=== PATIENT | male | born 1930 | race Caucasian/White ===

== ENCOUNTER 2017-04-16 07:31 | Emergency (ER) | payer MEDICARE, OTHER ==
[~2017-04-16] VITALS: Ht 165.1 cm; Wt 72.6 kg
[~2017-04-16 07:31] MED LIST: ACCUNEB SO1.25 MG/1 INH; ACIPHEX 20 MG T20 MG PO; ASA5UEC PO; ASPIR 8181 MG PO; ASPIRIN325 PO; BACITRACIN15 GM TP; BUDESONIDE0.5 MG/2 M INH; BUSPIRONE HCL10 MG PO; CARDURA2 MG PO; CEFPODOXIME PR200 M1 PO; COLACE100 MG PO; COZAAR 25 MG TA25 M1 PO; DOXYCYCLINE HY100 MG PO; DUONEB 2.5-0.5 M3 ML INH; ELIQUIS2.5 MG PO; ELIQUIS5 MG PO; EXELON1 EAC1 TRANSDERM; FINASTERIDE5 MG; FINASTERIDE5 MG PO; ICAPS TABLET1 EACH PO; IPRAT-ALBUT 0.5-3 ML IH; LEVAQUIN 500 M500 M1 PO; LEVAQUIN 500 M500 M2 PO; LIPITOR10 MG PO; LISINOPRIL10 MG; MEDROLDOSEPACK PO; METFORMIN HCL500 MG PO; MIRALAX17 GM PO; MOBIC7.5 MG PO; MUCINEX TA600 MG/TA2 PO; NEBULIZER MISCELL; NICOTINE TRANSD21 M1 TRANSDERM; POLYSPORIN OINT15 GM TP; PREDNISONE 10 M10 MG PO; PREDNISONE 20 M20 MG PO; PROTONIX40 M1 PO; SINGULAIR 10 MG10 M1 PO; SORINE 80 MG TA80 M1 PO; SYMBICORT160 MCG/4. INH; TAMSULOSIN HCL0.4 MG PO; TESSALON PERLE100 MG PO; TOPROL XL25 MG PO; VENTOLIN HFA 1818 GM INH; VITAMIN D3400 UNIT PO; XANAX 0.25 MG0.25 MG PO; XARELTO20 MG PO; ZPAK PO
[2017-04-16] MEDS ORDERED: ADVAIR 250-501 EACH INH (07:40)
[2017-04-16] MEDS ORDERED: ELIQUIS5 MG PO (07:41)
[2017-04-16] MEDS ORDERED: ICAPS TABLET1 EACH PO (07:41)
[2017-04-16] MEDS ORDERED: PREDNISONE 10 M10 MG PO (07:42)
[2017-04-16] MEDS ORDERED: ARTIFICIAL TEAR15 M1 OPHTHALMIC (07:43)
[2017-04-16] MEDS ORDERED: MAPAP325 MG PO (07:44)
[2017-04-16] MEDS ORDERED: PROAIR HFA8.5 GM INH (07:44)
[2017-04-16 09:37] VITALS: BP 123/87
== END 2017-04-16 09:39 | disposition home or self-care (01) ==
LOC: M.ERS 07:31
DX: S70.02XA Contusion of left hip, initial encounter (principal); E78.00 Pure hypercholesterolemia, unspecified; I10 Essential (primary) hypertension; J44.9 Chronic obstructive pulmonary disease, unspecified; F03.90 Unspecified dementia, unspecified severity, without behavioral disturbance, psychotic disturbance, mood disturbance, and anxiety; Z88.0 Allergy status to penicillin; Z88.5 Allergy status to narcotic agent; W18.39XA Other fall on same level, initial encounter; Y93.89 Activity, other specified; Y92.89 Other specified places as the place of occurrence of the external cause; Y99.8 Other external cause status

== ENCOUNTER 2017-08-31 13:00 | Inpatient (IN) | payer MEDICARE, OTHER ==
[~2017-08-31] VITALS: Ht 165.1 cm; Wt 80.3 kg
[~2017-08-31 13:00] MED LIST changes: +ADVAIR 250-501 EACH INH; +ARTIFICIAL TEAR15 M1 OPHTHALMIC; +MAPAP325 MG PO; +PROAIR HFA8.5 GM INH
[2017-08-31] MEDS ORDERED: FLUVOXAMINE MAL25 MG PO (13:10)
[2017-08-31] MEDS ORDERED: PROBIOTIC1 EAC1 PO (13:11)
[2017-08-31] MEDS ORDERED: KLOR-CON 1010 MEQ PO (13:11)
[2017-08-31] MEDS ORDERED: LASIX 20 MG TAB20 MG PO (13:11)
[2017-08-31] MEDS ORDERED: ATIVAN0.5 MG PO (13:11)
[2017-08-31 13:19] LABS: ABSOLUTE BASOPHILS 0.1 thou/uL (0.0-0.2); ABSOLUTE EOSINOPHILS 0.2 thou/uL (0.0-0.7); ABSOLUTE LYMPHOCYTES 2.4 thou/uL (0.8-5.3); ABSOLUTE MONOCYTES 1.2 thou/uL (0.0-1.2); ABSOLUTE NEUTROPHILS 6.1 thou/uL (1.6-8.1); BASOPHILS 0.6 %; EOSINOPHILS 1.8 %; HEMATOCRIT 34.4 % (42.0-52.0); HEMOGLOBIN 11.4 gm/dL (14.0-18.0); LYMPHOCYTES 24.2 %; MCH 30.3 pg (26.0-34.0); MCHC 33.2 g/dL (28.0-37.0); MCV 91.2 fL (80.0-100.0); MONOCYTES 11.9 %; MPV 6.6 fl. (7.2-11.1); NUCLEATED RBCS 0 /100WBC; PLATELET COUNT* 244 thou/uL (150-400); POLYS 61.5 %; RBC 3.78 mil/uL (4.50-6.00); RDW-CV 16.2 % (10.5-14.5); WBC 9.9 thou/uL (4.0-11.0)
[2017-08-31 13:29] LABS: ANION GAP 1 mmol/L (7-16); BUN 25 mg/dL (7-18); CALCIUM 9.1 mg/dL (8.5-10.1); CHLORIDE 102 mmol/L (98-107); CO2 33 mmol/L (21-32); CREATININE 1.2 mg/dL (0.6-1.3); GLUCOSE 125 mg/dL (70-99); INR 1.2; POTASSIUM 5.1 mmol/L (3.5-5.1); PROTIME 11.3 Seconds (9.20-11.50); SODIUM 136 mmol/L (136-145)
[2017-08-31 13:48] LABS: ALBUMIN 3.2 g/dL (3.4-5.0); ALKALINE PHOSPHATASE 56 U/L (46-116); CK-MB MASS 2.6 ng/mL (<0.5-3.6); NT-PRO BRAIN NAT PEPTIDE 1183 pg/mL (<300); SGOT 19 U/L (15-37); SGPT 18 U/L (30-65); TOTAL BILIRUBIN 0.4 mg/dL (<0.1-1.0); TROPONIN-I LEVEL <0.06 ng/mL (<0.06)
[2017-08-31 16:11] VITALS: BP 115/61
[2017-08-31 17:08] VITALS: BP 143/74
--- NOTE | 2017-08-31 17:42 | NUR ---
PATIENT ADMITTED TO ROOM 209 FROM ER. ALERT AND ORIENTED X 4 BUT PATIENT NOTED TO BE HALLUCINATING. PATIENT ATTEMPTING TO OPEN CABINET DOORS THAT ARE NOT THERE. UA SAMPLE SENT ORDERED. [address], 02 SAT 99%. 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 FALL RISK PROTOCOL. ORIENTED TO CALL LIGHT, CALL LIGHT WITHIN REACH. WILL CONTINUE TO MONITOR.
[2017-08-31] MEDS ORDERED: MIRALAX17 GM PO (17:57)
[2017-08-31 18:07] LABS: URINE BILIRUBIN NEGATIVE (Negative); URINE BLOOD NEGATIVE (Negative); URINE CLARITY CLEAR; URINE COLOR YELLOW; URINE GLUCOSE-RANDOM NEGATIVE (Negative); URINE KETONES NEGATIVE (Negative); URINE LEUKOCYTES-REFLEX NEGATIVE (Negative); URINE NITRITE-REFLEX NEGATIVE (Negative); URINE PROTEIN NEGATIVE (Negative); URINE UROBILINOGEN 0.2 E.U./dl (0.2-1.0)
[2017-08-31 20:00] VITALS: BP 132/75
[2017-09-01] VITALS (7 sets, daily range): BP systolic 113–158; BP diastolic 49–85
--- NOTE | 2017-09-01 05:25 | NUR ---
this nuyrse assumes care of pt 08/31/17 a 1930 pt is alert and oriented to person and place, pt has confusion and delusions, pt has constant twitching movements, denies pain, takes all meds po without difficulty, remains on residential monitor tracing sinus rhythm, pt on room air, sats high 90s, pt reports being SOA with exertion, pt up with assist for brp, pt is incontinent at times, remains on IV fluids, pt moved from room 209 to 213 for safety, lying in bed at this time, bed alarm on, call light within reach, siderails up x4
--- NOTE | 2017-09-01 05:31 | NUR ---
pt currently has supplemental o2 via nc at 2L
[2017-09-01 11:51] LABS: BE 1.7 mmol/L (-2 to +3); PO2 107.8 mmHg (75.0-100.0); pH 7.314 (7.340-7.450)
[2017-09-01 13:08] LABS: PCO2 58.3 mmHg (35.0-45.0)
--- NOTE | 2017-09-01 18:00 | NUR ---
PATIENT SLEEPING ALL MORNING/AFTERNOON AND IGNORING MOST COMMANDS. NEURO CONS AND SAW PATIENT, CT LUMBAR ORDERS AND VIT B SHOTS X 3 WITH FIRST DOSE GIVEN THIS EVENING. PATIENT UP TO CHAIR THIS AM BUT CONTINUED TO SLEEP. IV SL THIS SHIFT. PATIENT REFUSING TO WAKE FOR BREAKFAST AND LUNCH, PATIENT AWAKE AND EATING DINNER THIS EVENING. VOIDING PER URINAL. [address], DR. PLUMMER WAS NOTIFIED THIS AFTERNOON OF CRITICAL C02 ON ABG.
[2017-09-02 04:00] VITALS: BP 129/65
[2017-09-02 04:50] LABS: ABSOLUTE EOSINOPHILS 0.2 thou/uL (0.0-0.7); ABSOLUTE LYMPHOCYTES 2.3 thou/uL (0.8-5.3); ABSOLUTE MONOCYTES 1.2 thou/uL (0.0-1.2); ABSOLUTE NEUTROPHILS 6.1 thou/uL (1.6-8.1); BASOPHILS 0.3 %; EOSINOPHILS 2.3 %; HEMATOCRIT 35.2 % (42.0-52.0); HEMOGLOBIN 11.7 gm/dL (14.0-18.0); LYMPHOCYTES 23.5 %; MCH 30.9 pg (26.0-34.0); MCHC 33.3 g/dL (28.0-37.0); MCV 92.9 fL (80.0-100.0); MONOCYTES 12.2 %; MPV 6.7 fl. (7.2-11.1); NUCLEATED RBCS 0 /100WBC; PLATELET COUNT* 209 thou/uL (150-400); POLYS 61.7 %; RBC 3.78 mil/uL (4.50-6.00); WBC 9.9 thou/uL (4.0-11.0)
--- NOTE | 2017-09-02 05:04 | NUR ---
ASSUMED CARE OF PATIENT AT 1900 THE PATIENT REMAINS IN AN ACCELEATED JUNCTIONAL RHYTHM ON THE MONITOR O2 SAT MAINTAINED ON 1 L NC CONTINUES TO BE UP WITH ASSIST OF 1 TO THE RECLINER ROUTINE REGIMEN CONTINUES TO BE EFFECTIVE FOR SX MANAGEMENT SAFETY PATIENT PROGRESING TOWARDS GOALS INTERVENTIONS CONTINUE BED LOWERED WHEELS LOCKED CALL LIGHT IN REACH SIDE RAILS UP REPORT TO BE GIVEN TO ЕКАТЕРИНА BURTON
[2017-09-02 05:19] LABS: CALCIUM 8.9 mg/dL (8.5-10.1); POTASSIUM 4.5 mmol/L (3.5-5.1)
[2017-09-02 08:15] VITALS: BP 124/64
--- NOTE | 2017-09-02 11:34 | EKG ---
[place] [address] ELECTROCARDIOGRAM REPORT Name: TAZTONY Senthil Room: [address] IN [facility]#: [id number] Admission: 08/31/17 Attend Phys: Timothy Ponce Discharge: Date of : [birth year] Report #: [id number] THIS REPORT FOR: //name// [facility] ED Test Date: 2017-08-31 Test Time: 13:05:04 Pat Name: TONY MCGHEE Department: Room: Gender: [employer]: Esther LAGOS : 1930 Requested By: Remi Acosta Order Number: [id number] MD: Waqar Jarvis Measurements Intervals [place] Rate: 75 P: IA: QRS: 47 QRSD: 91 T: 28 QT: 414 QTc: 463 Interpretive Statements sinus rhythm Borderline repolarization abnormality Compared to ECG 08/29/2016 06:14:25 artifact no longer noted Electronically Signed On 09-02-2017 11:34:30 CDT by Waqar Jarvis [email or web address] <ELECTRONICALLY SIGNED> By: Waqar Jarvis MD, [facility] 09/02/17 1134 1305 1305 Waqar Jarvis MD, [facility] /EPI
[2017-09-02 13:08] VITALS: BP 150/76
--- NOTE | 2017-09-02 13:56 | 2DMMODE ---
[place] [address] 2 D/M-MODE ECHOCARDIOGRAM Name: TONY MCGHEE Room: [address] IN .R.#: [id number] Admission: 08/31/17 Attend Phys: Antoine Mckeon Discharge: Date of : [birth year] Date of Service: 09/02/17 1356 Report #: [id number] THIS REPORT FOR: //name// APPROVED REPORT Study performed: 09/02/2017 10:40:24 EXAM: Comprehensive 2D, Doppler, and color-flow Echocardiogram Patient Location: Bedside BSA: 1.88 HR: 70 bpm BP: 124/64 mmHg Other Information Study Quality: Fair Technically limited study due to inability to position patient. Indications AMS 2D Dimensions LVEF(%): 62.17 (>50%) IVSd: 12.50 (7-11mm) LVOT Diam: 20.07 (18-24mm) LVDd: 37.92 mm PWd: 11.90 (7-11mm) Ascending Ao: 33.80 (22-36mm) LVDs: 25.44 (25-40mm) Aortic Root: 30.58 mm Reyes's LVEF: 62.17 % Volumes Left Atrial Volume (Systole) LA ESV Index: 19.60 mL/m2 Aortic Valve AoV Peak Jose.: 1.38 m/s AO Peak Gr.: 7.58 mmHg LVOT Max P.94 mmHg AO Mean Gr.: 4.19 mmHg LVOT Mean P.39 mmHg LVOT Max V: 0.86 m/s AO V2 VTI: 26.97 cm LVOT Mean V: 0.54 m/s DEVAN (VTI): 2.38 cm2 LVOT V1 VTI: 20.32 cm Mitral Valve E/A Ratio: 0.71 [place] [address] 2 D/M-MODE ECHOCARDIOGRAM Name: TONY MCGHEE Room: [address] IN .R.#: [id number] Admission: 08/31/17 Attend Phys: Antoine Mckeon Discharge: Date of : [birth year] Date of Service: 09/02/17 1356 Report #: [id number] MV Decel. Time: 337.73 ms MV E Max Jose.: 0.72 m/s MV PHT: 97.94 ms MVA (PHT): 2.25 cm2 TDI E/Lateral E': 10.29 E/Medial E': 10.29 Medial E' Jose.: 0.07 m/s Lateral E' Jose.: 0.07 m/s Pulmonary Valve PV Peak Jose.: 0.80 m/s PV Peak Gr.: 2.55 mmHg Tricuspid Valve RAP Estimate: 10.00 mmHg TR Peak Gr.: 54.26 mmHg RVSP: 64.26 mmHg PA Pressure: 64.26 mmHg Left Ventricle The left ventricle is normal size. There is normal LV segmental wall motion. Mild concentric left ventricular hypertrophy. Left ventricular systolic function is normal. The left ventricular ejection fraction is within the normal range. LVEF is 60-65%. Grade I - abnormal relaxation pattern. Right Ventricle The right ventricle is normal size. The right ventricular systolic function is normal. Atria The left atrium size is normal. The right atrium size is normal. Aortic Valve The Aortic valve is sclerotic. No aortic regurgitation is present. There is no aortic valvular stenosis. Mitral Valve There is mitral annular calcification. Trace mitral regurgitation. No evidence of mitral valve stenosis. Tricuspid Valve The tricuspid valve is normal in structure. Trace tricuspid regurgitation. estimated pa pressure 60 [place] [address] 2 D/M-MODE ECHOCARDIOGRAM Name: TONY MCGHEE Room: [address]#: [id number] Admission: 08/31/17 Attend Phys: Antoine Mckeon Discharge: Date of : [birth year] Date of Service: 09/02/17 1356 Report #: [id number] Pulmonic valve is not well visualized. There is no pulmonic valvular regurgitation. Great Vessels The aortic root is normal in size. IVC is dilated. Pericardium There is no pericardial effusion. <Conclusion> Mild concentric left ventricular hypertrophy. LVEF is 60-65%. The Aortic valve is sclerotic. Trace tricuspid regurgitation. estimated pa pressure 60 mm hg <ELECTRONICALLY SIGNED> By: Waqar Jarvis MD, FACC 09/02/17 1356 1356 1356 Waqar Jarvis MD, FACC /INF
--- NOTE | 2017-09-02 15:49 | NUR ---
Pt is A&O. Resides at [facility]. Pt states that he goes to meals at the facility and staff dispense his medications. Staff also clean. Pt has a walker that he uses for mobility. Pt wears home o2 cont at 3L, provided through [facility]. No hx of HH or SNF. PT/OT orders placed. Pt's goal is to return home at dc. Discussed possible need for skilled at dc, pending therapy evals. CM following.
--- NOTE | 2017-09-02 15:55 | NUR ---
ASSUMED PT CARE AT 0730, FULL ASSESMENT DONE CHARTED. PT SLIGHLY DROWSY BUT AWAKE AND ATE BREAKFAST AND LUNCH. PT ORIENTED X3, FORGETFUL. USES CALL LIGHT APPROPRIATLY. VSS, ACCELERATED JUNCTIONAL ON THE MONITOR. PT EXPRESSES WANT TO GO HOME. HE DID SPEAK TO NEUROLOGIST TODAY. PT HAS SAT IN CHAIR AND BACK TO BED SEVERAL TIMES TODAY. FALL PRECAUTIONS IN PLACE. WILL CONTINUE WITH PLAN OF CARE.
[2017-09-02 16:03] VITALS: BP 136/69
--- NOTE | 2017-09-02 18:47 | NUR ---
PT PROGRESSING TOWARD GOALS. HE HAS BEEN MORE ALERT THROUGH THE SHIFT, HE DOES NAP AT TIMES, BUT IS ALERT ENOUGHT TO HAVE CONVERSATIONS AND EAT MEALS. PT IS REQUESTING A NICOTINE PATCH HE CHEWS. PT UP WITH RN AND WALKER IN HURT THIS EVENING. FALL PRECAUTIONS IN PLACE, FAMILY AT BEDSIDE. WILL CONTINUE TO MONITOR.
[2017-09-02 19:58] VITALS: BP 153/78
[2017-09-03] VITALS: BP 159/85
--- NOTE | 2017-09-03 03:58 | NUR ---
Pt requested to be assisted to chair, then back to bed, approx every 45-60 minutes throughout shift. States unable to get or stay comfortable. Voiding per urinal. VSS. Remains on 1L O2 per NC. SR per monitor. Will continue to monitor.
[2017-09-03 04:00] VITALS: BP 164/84
[2017-09-03 05:04] LABS: ABSOLUTE EOSINOPHILS 0.2 thou/uL (0.0-0.7); ABSOLUTE LYMPHOCYTES 2.4 thou/uL (0.8-5.3); ABSOLUTE MONOCYTES 1.3 thou/uL (0.0-1.2); BASOPHILS 0.2 %; EOSINOPHILS 1.7 %; HEMATOCRIT 37.3 % (42.0-52.0); HEMOGLOBIN 12.6 gm/dL (14.0-18.0); LYMPHOCYTES 24.2 %; MCH 31.4 pg (26.0-34.0); MCHC 33.9 g/dL (28.0-37.0); MCV 92.6 fL (80.0-100.0); MPV 7.1 fl. (7.2-11.1); NUCLEATED RBCS 0 /100WBC; PLATELET COUNT* 204 thou/uL (150-400); POLYS 60.9 %; RBC 4.02 mil/uL (4.50-6.00); RDW-CV 15.8 % (10.5-14.5); WBC 9.8 thou/uL (4.0-11.0)
[2017-09-03 05:20] LABS: CREATININE 1.1 mg/dL (0.6-1.3); POTASSIUM 4.2 mmol/L (3.5-5.1)
[2017-09-03 08:00] VITALS: BP 156/74
--- NOTE | 2017-09-03 09:38 | NUR ---
ASSUMED PT CARE AT 0730, FULL ASSESMENT DONE CHARTED. PT A/O X4, UP IN CHAIR, ATE BREAKFAST. STATES HE DID NOT SLEEP WELL LAST NIGHT. PT WANTS TO KNOW WHEN HE IS GOING HOME. EGD SCHEDULED FOR TODAY. PTS VSS, DENIES PAIN, SR ON THE MONITOR. FALL PRECAUTIONS IN PLACE. PT USING CALL LIGHT APPROPRIALTY. WILL CONTINUE WITH PLAN OF CARE.
[2017-09-03 12:00] VITALS: BP 123/62
[2017-09-03 20:00] VITALS: BP 158/76
[2017-09-04] VITALS: BP 133/73
[2017-09-04 03:53] VITALS: BP 156/79
--- NOTE | 2017-09-04 05:36 | NUR ---
ASSUMED PT CARE AT 1930. NURSING ASSESSMENT COMPLETED AT START OF SHIFT. PT VOICED NO CONCERNS THIS SHIFT. TRACING SINUS RHYTHM, HIGH FALL PRECAUTIONS IN PLACE. CALL LIGHT WIHIN REACH.
[2017-09-04 08:00] VITALS: BP 133/74
[2017-09-04 12:00] VITALS: BP 108/59
[2017-09-04] MEDS ORDERED: NICOTINE TRANSD21 M1 TOP (13:18)
[2017-09-04 13:30] VITALS: BP 108/59
--- NOTE | 2017-09-04 13:31 | NUR ---
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 Faxed dc orders. Chart copied. Updated Pt's dtr.
--- NOTE | 2017-09-04 15:40 | NUR ---
PT GIVEN DISCHARGE INSTRUCTIONS AND VERBALIZES UNDERSTANDING. EDUCATED ON SMOKING CESSATION. PT TRANSFERRED TO [facility] WITH [facility] VEHICLE AND UNRELATED ADULT. DC'D PER W/C WITH RN. NO OTHER CONCERNS AT THIS TIME.
--- NOTE | 2017-09-13 12:17 | EEG ---
[address] [address] EEG STUDY REPORT Name: TAZTONY E Room: [address] IN M.R.#: [id number] Admission: 08/31/17 Attend Phys: Timothy Ponce Discharge: 09/04/17 Date of : [birth year] Report #: [id number] THIS REPORT FOR: //name// CC: [facility] physician/PCP Antoine Mckeon DATE OF SERVICE: 09/03/2017 This patient is being evaluated for altered mental status. EEG is being done to further evaluate that. EEG was done by placing the electrode by standard 10-20 system of electrode placement. Both referential and sequential montages were used for recording. Background activity in this patient's EEG is about 8 Hz and 30 microvolt. It is a symmetrical activity. The patient became drowsy that is associated with bilateral slowing and vertex sharp waves. Photic stimulation is unremarkable. Throughout the record, no active epileptiform activity was noticed. IMPRESSION: This patient's EEG is intermixed with moderate amount of theta range slowing on both sides. That is a nonspecific abnormality, which can occur with encephalopathy, effect of psychotropic medication, dementia, etc. Clinical correlation is recommended. <ELECTRONICALLY SIGNED> By: Esdras Anthony MD 09/13/17 1217 1247 [id number] Anthony MD /nt
== END 2017-09-04 15:37 | DRG 640 ==
LOC: M.ERS 13:00 → M.TBA-ER 14:35 → M.2W 14:35
PROVIDERS: Family Medicine; ADMIT Internal Medicine
DX: E86.0 Dehydration (principal); G93.40 Encephalopathy, unspecified; J96.10 Chronic respiratory failure, unspecified whether with hypoxia or hypercapnia; F41.9 Anxiety disorder, unspecified; I25.2 Old myocardial infarction; I12.9 Hypertensive chronic kidney disease with stage 1 through stage 4 chronic kidney disease, or unspecified chronic kidney disease; N18.3 Chronic kidney disease, stage 3 (moderate); E78.00 Pure hypercholesterolemia, unspecified; F17.210 Nicotine dependence, cigarettes, uncomplicated; E78.5 Hyperlipidemia, unspecified; K21.9 Gastro-esophageal reflux disease without esophagitis; N40.0 Benign prostatic hyperplasia without lower urinary tract symptoms; J44.9 Chronic obstructive pulmonary disease, unspecified; F03.90 Unspecified dementia, unspecified severity, without behavioral disturbance, psychotic disturbance, mood disturbance, and anxiety; W19.XXXS Unspecified fall, sequela; Z88.6 Allergy status to analgesic agent; Z88.0 Allergy status to penicillin; Z91.81 History of falling; Z99.81 Dependence on supplemental oxygen; Z79.899 Other long term (current) drug therapy; Z82.49 Family history of ischemic heart disease and other diseases of the circulatory system; Y93.89 Activity, other specified; Y92.89 Other specified places as the place of occurrence of the external cause; Y99.8 Other external cause status

== ENCOUNTER 2017-10-05 21:04 | Emergency (ER) | payer MEDICARE, OTHER ==
[~2017-10-05] VITALS: Ht 165.1 cm; Wt 79.4 kg
[~2017-10-05 21:04] MED LIST changes: +ATIVAN0.5 MG PO; +FLUVOXAMINE MAL25 MG PO; +KLOR-CON 1010 MEQ PO; +LASIX 20 MG TAB20 MG PO; +NICOTINE TRANSD21 M1 TOP; +PROBIOTIC1 EAC1 PO
[2017-10-05] MEDS ORDERED: POTASSIUM20 PO (21:14)
[2017-10-05 23:00] VITALS: BP 144/79
== END 2017-10-05 23:00 | disposition home or self-care (01) ==
LOC: M.ERS 21:04
DX: S81.011A Laceration without foreign body, right knee, initial encounter (principal); S09.8XXA Other specified injuries of head, initial encounter; L89.322 Pressure ulcer of left buttock, stage 2; E78.00 Pure hypercholesterolemia, unspecified; I10 Essential (primary) hypertension; J44.9 Chronic obstructive pulmonary disease, unspecified; F03.90 Unspecified dementia, unspecified severity, without behavioral disturbance, psychotic disturbance, mood disturbance, and anxiety; Z88.0 Allergy status to penicillin; Z88.5 Allergy status to narcotic agent; W18.39XA Other fall on same level, initial encounter; Y93.89 Activity, other specified; Y92.89 Other specified places as the place of occurrence of the external cause; Y99.8 Other external cause status

== ENCOUNTER 2017-11-06 18:13 | Inpatient (IN) | payer MEDICARE, OTHER ==
[~2017-11-06] VITALS: Ht 165.1 cm; Wt 71.7 kg
[~2017-11-06 18:13] MED LIST changes: +POTASSIUM20 PO
[2017-11-06 18:21] VITALS: BP 118/70
[2017-11-06] MEDS ORDERED: ADVAIR 250-501 EACH INH (18:37)
--- NOTE | 2017-11-06 18:40 | NUR ---
WENT TO DO EKG AND START IV. PATIENT LEAVING FOR CT
[2017-11-06] MEDS ORDERED: RISAMINE OINTM113 GM TOP (18:42)
[2017-11-06] MEDS ORDERED: TRIPLE ANTIB28.35 GM TOP (18:44)
[2017-11-06 18:55] LABS: ABSOLUTE BASOPHILS 0.1 thou/uL (0.0-0.2); ABSOLUTE LYMPHOCYTES 2.2 thou/uL (0.8-5.3); ABSOLUTE MONOCYTES 0.4 thou/uL (0.0-1.2); ABSOLUTE NEUTROPHILS 5.6 thou/uL (1.6-8.1); BASOPHILS 0.8 %; HEMOGLOBIN 13.1 gm/dL (14.0-18.0); LYMPHOCYTES 26.3 %; MCH 31.6 pg (26.0-34.0); MCHC 32.8 g/dL (28.0-37.0); MCV 96.5 fL (80.0-100.0); MPV 7.6 fl. (7.2-11.1); NUCLEATED RBCS 0 /100WBC; PLATELET COUNT* 269 thou/uL (150-400); POLYS 67.9 %; RBC 4.14 mil/uL (4.50-6.00); RDW-CV 15.1 % (10.5-14.5); WBC 8.2 thou/uL (4.0-11.0)
[2017-11-06 19:04] LABS: ANION GAP 18 mmol/L (7-16); BUN 62 mg/dL (7-18); CALCIUM 8.7 mg/dL (8.5-10.1); CHLORIDE 99 mmol/L (98-107); CO2 19 mmol/L (21-32); CREATININE 6.2 mg/dL (0.6-1.3); GLUCOSE 123 mg/dL (70-99); SODIUM 136 mmol/L (136-145)
--- NOTE | 2017-11-06 19:13 | NUR ---
RECEIVED REPORT FROM MICHEAL CHA PT CURRENTLY AT RADIOLOGY
[2017-11-06 19:14] LABS: ALBUMIN 3.3 g/dL (3.4-5.0); ALKALINE PHOSPHATASE 74 U/L (46-116); LIPASE 201 U/L (73-393); NT-PRO BRAIN NAT PEPTIDE 6218 pg/mL (<300); SGOT 14 U/L (15-37); SGPT 12 U/L (30-65); TOTAL BILIRUBIN 0.6 mg/dL (<0.1-1.0); TOTAL PROTEIN 6.5 g/dL (6.4-8.2); TROPONIN-I LEVEL <0.06 ng/mL (<0.06)
[2017-11-06 21:40] VITALS: BP 122/61
--- NOTE | 2017-11-06 22:00 | NUR ---
PATIENT ARRIVED TO UNIT @ 2139. VS WNL. AFIB ON MONITOR. PT ORIENT X4. HE DID HAVE AN EPISODE OF VOMITTING. SAYS HE IS STILL NAUSEOUS. PAGED NEPHRO FOR ORDERS. SPOKE TO TAMMY MAGALLANES (DTR) UPDATED ON CURRENT CARE. SHE VOICED UNDERSTANDING. SHE ASKED TO SPEAK TO THE LEATHER REPAIRER. WILL PASS ON REPORT. PT IS DENYING PAIN AT THE MOMENT. STATED THAT HIS SHOULDER PAIN WENT AWAY AFTER THEY GAVE HIM MEDICATION IN ER. WILL CONTINUE TO MONITOR CLOSELY.
[2017-11-06 22:04] VITALS: BP 134/84
[2017-11-06 23:00] VITALS: BP 140/61
[2017-11-07] VITALS (9 sets, daily range): BP systolic 94–155; BP diastolic 43–66
--- NOTE | 2017-11-07 06:17 | NUR ---
PATIENT PROGRESSING TOWARDS GOALS. POTASSIUM LEVELS TRENDING DOWN. NEPHROLOGY AWARE AND ORDERS GIVEN. HEMODYNAMICALLY STABLE. VS WNL. PT MARJAN SR ON MONITOR ASYMPTOMATIC. URINE OUTPUT NOT ADEQUATE. HAD SEVERAL LIQUID STOOLS OVER NIGHT. PT WILL HAVE ANOTHER POTASSIUM BLOOD THIS A.M. DENIES N &V. BED TO LOWEST POSITION. CALL LIGHT WITHIN REACH. RECIEVED Q2H TURNS THROUGHOUT SHIFT.
[2017-11-07 08:27] LABS: CALCIUM 8.4 mg/dL (8.5-10.1); CREATININE 6.1 mg/dL (0.6-1.3); POTASSIUM 4.8 mmol/L (3.5-5.1)
--- NOTE | 2017-11-07 10:23 | NUR ---
DR GARZA OK FOR PATIENT TO BE TELE STATUS. FAMILY AT BEDSIDE WAITING FOR DR IBRAHIM TO SEE PATIENT. KIDNEY FUNCTION NOT IMPROVING BUT POTASSIUM HAS NORMALIZED. CT ABDOMEN DONE AND RESULTS NEGATIVE. DNR PUT IN PER ADVANCE DIRECTIVE ORDERS AND DR GARZA.
--- NOTE | 2017-11-07 10:30 | NUR ---
INTERDISICIPLINARY ROUNDS: MET WITH PT'S DTRS TO DISCUSS HOME SITUATION/DC PLANNING. PT LIVES IN [place] AT THE [facility]. PER DTR/TAMMY WHO IS DPOA, PT HAS BEEN FAILING LATELY, NOT EATING WELL. HE USES WALKER, O2 AND NEBULIZER. HAS HAD HH FOR WOUND CARE, UNSURE OF AGENCY. THEY ARE AWARE THAT PT IS IN RENAL FAILURE AND WAITING TO TALK WITH BREAD ICER. TAMMY STATED THAT PT WOULDN'T WANT DIALYSIS. DPOA ON CHART WELL OUTSIDE DNR. WILL FOLLOW
--- NOTE | 2017-11-07 14:19 | NUR ---
PATIENT IS NOW M/S TELE STATUS
--- NOTE | 2017-11-07 14:45 | NUR ---
ASSUMED CARE OF PATIENT AT THIS TIME. REPORT RECEIVED FROM MANDO BURTON
--- NOTE | 2017-11-07 14:50 | NUR ---
REPORT GIVEN TO JEROD. ALL QUESTIONS ANSWERED. DPOA PRESENT AT TIME OF TRANSFER. PATIENT WENT BY WHEELCHAIR TO ROOM 304. ALL BELONGINGS AND CHART AND MEDICATIONS SENT WITH ARIADNE.
--- NOTE | 2017-11-07 15:35 | NUR ---
WOUND CARE NOTE: CONSULT RECEIVED FOR ABRASIONS TO BUTTOCKS. PATIENT PRESENTS WITH A HEALING AREA WITH MULTIPLE SCABS AND BLANCHABLE REDNESS TO HIS SACRUM. PATIENT ADMITS TO HAVING THIS FOR AWHILE. FAMILY MEMBER IN ROOM STATES HE NORMALLY SITS UP MOST OF THE DAY AND NIGHT AT THE FACILITY, BUT SINCE HE GOT THIS SPOT, THEY HAVE BEEN LAYING HIM DOWN MORE AND USING A CREAM TO HIS WOUND. DRY, STABLE SCABS WITH BLANCHABLE REDNESS TO SACRUM. MOST LIKELY A HEALING STAGE 2 PRESSURE ULCER, BUT DIFFICULT TO DETERMINE ORIGINAL STAGE DUE TO THE HEALING NATURE. APPLIED BARRIER OITMENT. EDUCATED PATIENT AND FAMILY MEMBER ON TURNING AND KEEPING OFF AREA TO PROMOTE HEALING AND THE NEED TO APPLY BARRIER OINTMENT TO PROTECT AREA. COMMUNICATED UNDERSTANDING AND PATIENT ALLOWED ME TO TURN HIM TO HIS LEFT SIDE. RECOMMEND TURN Q2 HOURS BARRIER OINTMENT BID AND PRN LIMIT HOB <30 DEGREES NO BRIEFS IN BED LIMIT LAYERS OF LINEN UNDER PATIENT.
--- NOTE | 2017-11-07 16:39 | EKG ---
[place] [address] ELECTROCARDIOGRAM REPORT Name: TONY MCGHEE Room: [address] ADM IN M.R.#: [id number] Admission: 11/06/17 Attend Phys: Edi Barragan MD Discharge: Date of : [birth year] Report #: [id number] THIS REPORT FOR: //name// [facility] ED Test Date: 2017-11-06 Test Time: 18:35:40 Pat Name: TONY MCGHEE Department: Room: [facility] Gender: M Director Camp: AM : 1930 Requested By: Amy Watkins Order Number: [id number] MD: Cesar Fraire Measurements Intervals [place] Rate: 68 P: OR: QRS: 19 QRSD: 125 T: 80 QT: 484 QTc: 515 Interpretive Statements Atrial fibrillatio Nonspecific intraventricular conduction delay Borderline ST elevation, lateral leads Baseline wander in lead(s) I,II,aVR,aVL,aVF,V5 Compared to ECG 08/31/2017 13:05:0 Intraventricular conduction delay now present ST (T wave) deviation now present Sinus rhythm no longer present Electronically Signed On 11-07-2017 16:39:03 CDT by Cesar Fraire [email or web address] <ELECTRONICALLY SIGNED> By: Cesar Fraire MD, [facility] 11/07/17 1639 34 34 Cesar Fraire MD, [facility] /EPI
--- NOTE | 2017-11-07 18:33 | NUR ---
PATEINT RESTING IN BED. PATIENT IS UP WITH MODERATE ASSIST OF ONE. PATIENT DENIES ANY PAIN. PATIENT HAS SLEPT MOST OF DAY. PATIENT HAS POOR APPETITE. FAMILY AT BEDSIDE. WILL CONTINUE TO MONITOR.
[2017-11-08] VITALS: BP 95/37
[2017-11-08 04:00] VITALS: BP 105/52
[2017-11-08 04:58] LABS: ABSOLUTE EOSINOPHILS 0.1 thou/uL (0.0-0.7); ABSOLUTE LYMPHOCYTES 2.2 thou/uL (0.8-5.3); ABSOLUTE MONOCYTES 1.2 thou/uL (0.0-1.2); ABSOLUTE NEUTROPHILS 6.3 thou/uL (1.6-8.1); BASOPHILS 0.3 %; EOSINOPHILS 1.3 %; HEMATOCRIT 37.5 % (42.0-52.0); HEMOGLOBIN 12.4 gm/dL (14.0-18.0); LYMPHOCYTES 22.2 %; MCH 31.9 pg (26.0-34.0); MCHC 33.1 g/dL (28.0-37.0); MCV 96.4 fL (80.0-100.0); MPV 7.8 fl. (7.2-11.1); NUCLEATED RBCS 0 /100WBC; POLYS 64.2 %; RBC 3.89 mil/uL (4.50-6.00); WBC 9.8 thou/uL (4.0-11.0)
[2017-11-08 05:10] LABS: PLATELET COUNT* 160 thou/uL (150-400)
--- NOTE | 2017-11-08 05:20 | NUR ---
PT SLEPT MOST OF SHIFT. ASSESSMENT DOCUMENTED. MEDS GIVEN PER E-MAR. IV PATENT, FLUIDS INFUSING. NO REPORTS OF PAIN OR NAUSEA. WILL CONTINUE WITH PLAN OF CARE.
[2017-11-08 05:22] LABS: CALCIUM 7.7 mg/dL (8.5-10.1); CREATININE 5.9 mg/dL (0.6-1.3)
[2017-11-08 05:25] LABS: POTASSIUM 3.8 mmol/L (3.5-5.1)
[2017-11-08 07:55] VITALS: BP 108/51
[2017-11-08 12:15] VITALS: BP 108/51
--- NOTE | 2017-11-08 14:59 | NUR ---
Pt to dc back to [facility] today. ELIZABETH spoke with Ramiro at [facility] who is aware and ready for pt to return; Ramiro expressed that the will discuss arranging hospice when pt/family ready. ELIZABETH arranged wc van through [employer] for 3:00 to 3:30. ELIZABETH faxed dc information, orders, med list to [facility].
--- NOTE | 2017-11-08 16:11 | NUR ---
PATIENT A&OX4, FORGETFUL. 2L O2 VIA NC. IV LEFT FOREARM FLUIDS INFUSSING. IV DISCONTINUED, CATHETER FULLY INTACT. UP WITH ASSISTX1 WITH GAITBELT AND WALKER, UNSTEADY SHUFFLE. NO C/O PIAN/N/V. NIEVES DISCONTINUED, ABLE TO URINATE ON OWN. PICTURE TAKEN OF COCYX. PATIENT LEFT UNIT VIA W/C VAN AT 1600 WITH FAMILY. REVIEWED DISCHARGE PAPERWORK WITH [facility], WHILE FAMILY AT BEDSIDE. VERBALIZES UNDERSTANDING. ALL QUESTIONS AND CONCERNS ANSWERED. ALL BELONGINGS TAKEN WITH PATIENT, NOTHING LEFT BEHIND. APPROPRIATE AND COOPORATIVE WITH CARE.
--- NOTE | 2017-11-11 11:08 | CON ---
[address] [address] CONSULTATION Name: TAZTONY E Room: [address] IN .R.#: [id number] Admission: 11/06/17 Attend Phys: Edi Barragan MD Discharge: 11/08/17 Date of : [birth year] Report #: [id number] THIS REPORT FOR: //name// CC: Edi Dominguez DATE OF SERVICE: 11/07/2017 REQUESTING PHYSICIAN: Rashaad Tolbert M.D. REASON FOR CONSULTATION: Acute kidney injury with hyperkalemia. HISTORY OF PRESENT ILLNESS: The patient is an 87-year-old gentleman with advanced dementia, who apparently according to his family, he has stopped eating and drinking for the last several weeks. His intake is very minimal. He has no desire to live according to the family and in his advanced directive mentioned that he does not wish any kind of artificial feedings. So, he brought here, his potassium was elevated. His creatinine is 6. He was given treatment for that. He is receiving IV fluids and Yancey was placed. PAST MEDICAL HISTORY: 1. Dementia. 2. COPD. 3. History of colitis. 4. History of coronary artery disease. 5. History of TIA. FAMILY HISTORY: Noncontributory. SOCIAL HISTORY: He lives in assisted living. MEDICATIONS: Reviewed from my standpoint, he was on furosemide 20 mg a day, losartan 25 mg 2 tablets a day, metformin and potassium. REVIEW OF SYSTEMS: Unobtainable because he does not really answering questions. PHYSICAL EXAMINATION: GENERAL: Sleepy, does not want to engage in conversation. VITAL SIGNS: Blood pressure is 103/46, heart rate 56, respirations 16, afebrile. HEENT: Pupils are round. NECK: Supple. LUNGS: Clear. CARDIOVASCULAR: Regular rate. ABDOMEN: [place] [address] CONSULTATION Name: TONY MCGHEE Room: [address]#: [id number] Admission: 11/06/17 Attend Phys: Edi Barragan MD Discharge: 11/08/17 Date of : [birth year] Report #: [id number] LABORATORY DATA: Hemoglobin 13.1. Serum sodium 144, potassium 4.8 down from 7.0, BUN 66, creatinine 6.1. ASSESSMENT AND PLAN: Acute kidney injury, likely multifactorial due to not eating and not drinking. He has advanced dementia. He is receiving losartan contributed to that. I had a long discussion with the family, they all agreed that they do not any artificial measures to prolong his life. The patient clearly does not want to be in any artificial nutrition and does not want any more blood draws. They appreciate the help that we provided. At this point, I agree and I would not do any more blood draws and I will sign off. <ELECTRONICALLY SIGNED> By: Britton Boyd MD 11/11/17 1108 1150 [id number] Boyd MD /lashanda
== END 2017-11-08 16:00 | DRG 682 ==
LOC: M.ERS 18:13 → M.TBA-ER 20:32 → M.ICU 20:32 → M.3W 11-07 14:38
PROVIDERS: Internal Medicine; Internal Medicine Nephrology; Nurse Practitioner; ADMIT Internal Medicine
DX: N17.9 Acute kidney failure, unspecified (principal); G93.40 Encephalopathy, unspecified; E87.2 Acidosis; J96.10 Chronic respiratory failure, unspecified whether with hypoxia or hypercapnia; E87.5 Hyperkalemia; E78.00 Pure hypercholesterolemia, unspecified; N40.0 Benign prostatic hyperplasia without lower urinary tract symptoms; J44.9 Chronic obstructive pulmonary disease, unspecified; F03.90 Unspecified dementia, unspecified severity, without behavioral disturbance, psychotic disturbance, mood disturbance, and anxiety; I11.0 Hypertensive heart disease with heart failure; I25.10 Atherosclerotic heart disease of native coronary artery without angina pectoris; R00.1 Bradycardia, unspecified; I50.9 Heart failure, unspecified; I25.2 Old myocardial infarction; Z88.6 Allergy status to analgesic agent; Z88.0 Allergy status to penicillin; Z86.73 Personal history of transient ischemic attack (TIA), and cerebral infarction without residual deficits; Z82.49 Family history of ischemic heart disease and other diseases of the circulatory system